=== PATIENT | female | born 2000 | race Caucasian/White ===

== ENCOUNTER 2018-04-24 10:00 | Emergency (ER) | payer OTHER ==
[2018-04-24 11:59] VITALS: BP 113/63
--- NOTE | 2018-04-24 12:27 | UC ---
General HPI - HPI Summary HPI Summary: 17-year-old FEMALE chief complaint feeling lightheaded and hot. This started yesterday when she was moving back into her dorm. She states her skin feels hot. She also feels lightheaded. At home she has air conditioning here on campus she does not have air conditioning. No headache no fevers no dysuria. No runny nose no chest pain no racing heart. She IS NOT having heavy menstrual periods. - History of Current Complaint Chief Complaint: UCGeneralIllness Stated Complaint: FEVER/BODY HOT,FATIGUE Time Seen by Provider: 04/24/18 11:28 Hx Last Menstrual Period: 04/11/18 Pain Intensity: 8 - Allergy/Home Medications Allergies/Adverse Reactions: Allergies Allergy/AdvReac Type Severity Reaction Status Date / Time No Known Allergies Allergy Verified 04/24/18 10:26 Home Medications: Home Medications Ibuprofen TAB* [Advil TAB*] 800 mg PO Q6H PRN 04/24/18 [History Confirmed ] PMH/Surg Hx/FS Hx/Imm Hx Previously Healthy: Yes Other Endocrine History: NO DM Other Cardiovascular History: NO HTN - Surgical History Surgical History: None - Family History Known Family History: Positive: Cardiac Disease Family History: LACERATIONS - Social History Occupation: Student Alcohol Use: Rare Substance Use Type: None Smoking Status (MU): Never Smoked Tobacco Review of Systems Constitutional: Other - LIGHTHEADEDNESS. SKIN FEELS HOT. Skin: Other Eyes: Negative ENT: Other - MILD CHRONIC ENVIRONMENTAL ALLERGY SX Respiratory: Negative Cardiovascular: Negative Gastrointestinal: Negative Genitourinary: Negative Motor: Negative Neurovascular: Negative Musculoskeletal: Negative Neurological: Negative Psychological: Negative Is Patient Immunocompromised?: No All Other Systems Reviewed And Are Negative: Yes Physical Exam Triage Information Reviewed: Yes Appearance: Well-Appearing, No Pain Distress, Well-Nourished Vital Signs: Initial Vital Signs Temp 99.8 F 04/24/18 10:16 Pulse 104 04/24/18 10:16 Resp 16 04/24/18 10:16 BP 117/66 04/24/18 10:16 Pulse Ox 100 04/24/18 10:16 Vital Signs Reviewed: Yes Eye Exam: Normal ENT Exam: Normal Dental Exam: Normal Neck exam: Normal Neck: Positive: Supple Respiratory Exam: Normal Respiratory: Positive: Lungs clear, Normal breath sounds Cardiovascular Exam: Normal Cardiovascular: Positive: RRR Musculoskeletal: Positive: Strength Intact, ROM Intact, No Edema Neurological Exam: Normal Psychological Exam: Normal Skin Exam: Normal Course/Dx - Course Course Of Treatment: Orthostatics were mildly positive. No obvious source of infection. We discussed trying [id number] antihistamine and drinking plenty of water. Also if she has any signs of infection she is to get rechecked right away. I offered getting lab work done today to include a thyroid test the patient declined. Follow up with [facility] recheck sooner if worse - Differential Dx - Multi-Symptom Provider Diagnoses: LIGHTHEADEDNESS Discharge - Sign-Out/Discharge Documenting (check all that apply): Patient Departure All imaging exams completed and their final reports reviewed: No Studies - Discharge Plan Condition: Stable Disposition: HOME [facility] Referrals: [facility] [Outside] Additional Instructions: FOLLOW UP WITH YOUR DOCTOR IF NOT COMPLETELY IMPROVED. DRINK PLENTY OF WATER. GET RECHECKED FOR ANY WORSENING OF YOUR CONDITION; FEVER, YOU FEEL LIKE PASSING OUT OR QUESTIONS OR CONCERNS. - Billing Disposition and Condition Condition: STABLE Disposition: Home
== END 2018-04-24 12:28 | disposition home or self-care (01) ==
LOC: UCCORT 10:00
DX: R42 Dizziness and giddiness (principal)
CPT/HCPCS: 99202; G0463

== ENCOUNTER 2018-04-24 17:25 | Emergency (ER) | payer OTHER ==
--- NOTE | 2018-04-25 08:55 | UC ---
Discharge - Sign-Out/Discharge Documenting (check all that apply): Post-Discharge Follow Up All imaging exams completed and their final reports reviewed: No Studies - Discharge Plan Disposition: LEFT WITHOUT BEING SEEN Referrals: No Primary Care Phys,NOPCP [Primary Care Provider] - - Billing Disposition and Condition Disposition: Left Without Being Seen
== END 2018-04-24 17:54 | disposition left against medical advice (07) ==
LOC: UCCORT 17:25
DX: R50.9 Fever, unspecified (principal); R11.0 Nausea; R51 Headache; Z53.21 Procedure and treatment not carried out due to patient leaving prior to being seen by health care provider